=== PATIENT | male | born 1980 | race Caucasian/White ===

== ENCOUNTER 2017-11-18 07:28 | Emergency (ER) | payer MEDICAID, OTHER ==
--- NOTE | 2017-11-18 08:06 | EDPHY ---
H & P Stated Complaint: FEVER, CONGESTION, SINUS PRESSURE, SINCE 2 DAYS. ALSO REPORTS CALF PAIN Time Seen by Provider: 11/18/17 07:34 HPI/ROS: CHIEF COMPLAINT: Fever History by patient HISTORY OF PRESENT ILLNESS: 37-year-old man presents with 24 hr of fever as high as 105 at home. Patient returned from 1 week traveling around [place] yesterday and his fever and shaking chills began while he was in the airport. He also complains of some sinus congestion and cough as well as generalized malaise and body aches. He denies any rash. He denies any sore throat. He has had some intermittent abdominal pain but no vomiting diarrhea or constipation. He denies any back pain, dysuria urgency frequency or hematuria. He has been tolerating fluids without difficulty. He had multiple ski toe bites while he was traveling [place]. [place] areas. He has had some right calf pain and noticed what seemed to be a bulging blood vessel in his left calf which has resolved but he still has some soreness in the area. He denies any trauma. He was not any farms or exposed to referral household or hospitals or anyone with known tuberculosis. Patient is otherwise healthy and does not smoke. He did not get any pre trip vaccines. He has a [id number] at home but his is not . REVIEW OF SYSTEMS: As in HPI, and all other systems reviewed and are negative Source: Patient - Personal History Current Tetanus Diphtheria and Acellular Pertussis (TDAP): No Tetanus Vaccine Date: 2007 - Medical/Surgical History Hx Asthma: No Hx Chronic Respiratory Disease: No Hx Diabetes: No Hx Cardiac Disease: No Hx Renal Disease: No Hx Cirrhosis: No Hx Alcoholism: No Hx HIV/AIDS: No Hx Splenectomy or Spleen Trauma: No Other PMH: DENIES - Social History Smoking Status: Never smoked - Physical Exam Exam: General Appearance: Alert, nontoxic-appearing Head: normocephalic, atraumatic Eyes: Pupils equal and round, reactive to light, no pallor or injection. Mouth: Mucous membranes moist. Oropharynx clear, no tonsillar enlargement Neck: No bony tenderness, full range of motion, no meningismus Respiratory: Normal, effort, lungs are clear to auscultation. No rales or rhonchi but slightly wheezy cough. Cardiovascular: Regular rate and rhythm. S1, S2, no murmurs, gallops or rubs appreciated Gastrointestinal: Abdomen is soft and nontender, no masses, bowel sounds normal , no hepatosplenomegaly. Back: No CVA tenderness, no bony tenderness Neurological: Awake, alert and oriented x 3, cranial nerves 2-12 intact, no pronator drift, normal gait, Skin: pink, Warm and dry, no rashes, petechiae or splinter hemorrhages. Musculoskeletal: No deformities or tenderness. Extremities: full range of motion, no edema, no calf swelling or tenderness, mild eccymosis medial anterior calf, DP2+ bilat Psychiatric: Patient has normal affect, there is no agitation. Constitutional: Initial Vital Signs Temperature (C) 37.9 C 11/18/17 07:30 Heart Rate 96 11/18/17 07:30 Respiratory Rate 16 11/18/17 07:30 Blood Pressure 135/88 H 11/18/17 07:30 O2 Sat (%) 95 11/18/17 07:30 O2 Delivery Mode Room Air Allergies/Adverse Reactions: No Known Allergies Allergy (Verified 11/18/17 07:33) Home Medications: Medication Instructions Recorded Miscellaneous Medical Supply [NO 1 ea [facility] 04/10/12 HOME MEDS] Medical Decision Making - Diagnostics Imaging Results: Imaging Impressions Chest X-Ray 11/18/17 08:01 Impression: 1. Mild bronchitis/airways disease. 2. No definite focal pneumonia. ED Course/Re-evaluation: 37-year-old man presents with high fever after traveling in the [facility] [place]. Here the patient is febrile but nontoxic appearing and hemodynamically stable. I was concerned about travel related diseases such as malaria, typhoid, and dengue and leptospirosis as well as pneumonia or viral illnesses. Therefore labs, blood cultures and malaria smear were obtained. There is no clinical evidence of acute sepsis syndrome. Patient had a normal white blood cell count no evidence of anemia or thrombocytopenia. Urinalysis showed no evidence of blood or infection. Patient 's LFTs were all within normal limits as was his renal function. A chest x-ray showed no evidence of pneumonia. Whole area smear was negative. Patient was observed emerged department and remained hemodynamically stable. Given the lack of specific findings and that the patient is clinically nontoxic at this point we will withhold any empiric treatment. I did discuss the case with Dr. Skelton hotel front desk agent for Infectious Disease. Blood cultures are pending at time dictation. I discussed follow-up and return precautions with the patient. - Data Points Laboratory Results: 11/18/17 11/18/17 08:15 08:10 POC Sodium 138 mEq/L mEq/L (135-145) POC Potassium 3.9 mEq/L mEq/L (3.3-5.0) POC Chloride 101.0 mEq/L mEq/L (97-110) POC Total CO2 25 mEq/L mEq/L (22-31) POC BUN 11 mg/dL mg/dL (7-23) POC Creatinine 1.3 mg/dL mg/dL (0.7-1.3) POC Glucose 93 mg/dL mg/dL (70-100) POC Calcium 9.1 mg/dL mg/dL (8.5-10.4) POC Total Bilirubin 0.6 mg/dL mg/dL (0.1-1.4) POC AST 31 IU/L IU/L (17-59) POC ALT 32 IU/L IU/L (21-72) POC Alk Phosphatase 65 IU/L IU/L (38-126) POC Total Protein 7.3 g/dL g/dL (6.3-8.2) POC Albumin 4.0 g/dL g/dL (3.5-5.0) Malaria Smear NONE SEEN (NONE SEEN) Malaria Sm Path Review Pending Medications Given: Discontinued Medications Acetaminophen (Tylenol) 1,000 mg PO EDNOW ONE Stop: 11/18/17 08:26 Last Admin: 11/18/17 08:34 Dose: 1,000 mg Point of Care Test Results: CBC CBC Collection Date 11/18/17 CBC Collection Time 08:10 WBC 4.8 RBC 5.02 HGB 15.4 HCT 46.7 PLT 228 Neut # 4.0 Neut 82.5 LYMPH # 0.7 LYMPH 15.6 Other WBC # 0.1 Other WBC 1.9 MCV 93.0 Chemistry 11/18/17 08:15 POC Sodium 138 mEq/L mEq/L (135-145) POC Potassium 3.9 mEq/L mEq/L (3.3-5.0) POC Chloride 101.0 mEq/L mEq/L (97-110) POC Total CO2 25 mEq/L mEq/L (22-31) POC BUN 11 mg/dL mg/dL (7-23) POC Creatinine 1.3 mg/dL mg/dL (0.7-1.3) POC Glucose 93 mg/dL mg/dL (70-100) POC Calcium 9.1 mg/dL mg/dL (8.5-10.4) POC Total Bilirubin 0.6 mg/dL mg/dL (0.1-1.4) POC AST 31 IU/L IU/L (17-59) POC ALT 32 IU/L IU/L (21-72) POC Alk Phosphatase 65 IU/L IU/L (38-126) POC Total Protein 7.3 g/dL g/dL (6.3-8.2) POC Albumin 4.0 g/dL g/dL (3.5-5.0) Urine Dip Collection Date 11/18/17 Collection Time 08:40 Specific [place] (1.002-1.030) 1.015 Leukocytes (Negative) Negative Nitrites (Negative) Negative Protein (Negative) 2+ Glucose (Negative) Negative Ketones (Negative) 3+ Urobilnogen (0.2-1.0 EU) 0.2 Bilirubin (Negative) Negative Blood (Negative) Negative Departure - Departure Disposition: Home, Routine, Self-Care Clinical Impression: Fever and chills Condition: Good Instructions: Fever in Adults (ED) Additional Instructions: You were seen by Dr. Joanne Alonso today. At this point the cause of your fever is unclear. Your chest x-ray was normal. Her blood work was normal. Blood cultures and urine culture are still pending and we will call you if these are positive. You may continue to take acetaminophen 1000 mg every 6 hr for fever and aches and/or ibuprofen 4-600 mg 4 times a day. Please follow up with your primary care physician at [facility] in 2 days for recheck. Return immediately to the emergency department for any worsening or new concerns including but not limited to inability to take fluids, any development of rash, confusion or other worsening. Referrals: NONE *PRIMARY CARE P,. [Primary Care Provider] - As per Instructions Jacinto Hernandez DO [Medical Doctor] - As per Instructions
[2017-11-18] MEDS ORDERED: ACETAMINOPHEN 160 MG/5 ML UDCUP PO ONE (08:08)
[2017-11-18] MEDS ORDERED: ACETAMINOPHEN 500 MG TAB PO ONE (08:25)
[2017-11-18 11:54] LABS: MALARIAL PREP NONE SEEN (NONE SEEN)
[2017-11-18 12:37] VITALS: BP 120/73
== END 2017-11-18 12:30 | disposition home or self-care (01) ==
LOC: CED 07:28
DX: R50.9 Fever, unspecified (principal)
CPT/HCPCS: 71046-PO; 80053-PO